=== PATIENT | female | born 1970 | race Caucasian/White ===

== ENCOUNTER 2016-07-07 09:28 | Emergency (ER) | payer BC, OTHER ==
[~2016-07-07] VITALS: Ht 154.9 cm; Wt 84.9 kg
[2016-07-07] MEDS ORDERED: HYDROmorphone 1 MG/ML, 1ML ONE ×2 (10:09→10:47)
[2016-07-07] MEDS ORDERED: ONDANSETRON 2MG/ML, 2ML ONE (10:09)
[2016-07-07] MEDS: HYDROmorphone 1 MG/ML, 1ML IVPush PRN ×2 (10:14→10:50)
[2016-07-07 10:22] LABS: PATH.CAST-FLAG NOT PRESENT; SPERM-FLAG NOT PRESENT; SRC-FLAG NOT PRESENT; XTAL-FLAG NOT PRESENT; YLC-FLAG NOT PRESENT
[2016-07-07 10:24] LABS: HCG UR OBC PASS
[2016-07-07] MEDS ORDERED: ONDANSETRON 2MG/ML, 2ML IVPush ONE (10:30)
[2016-07-07 11:10] LABS: BLOOD UREA NITROGEN 14 mg/dL (7-18)
[2016-07-07 11:13] LABS: ASPARTATE AMINO TRANSFERASE 13 U/L (15-37)
[2016-07-07] MEDS ORDERED: OMNIPAQUE 350 MG/ML, 100ML BOTTLE ONE (11:37)
[2016-07-07] MEDS ORDERED: KETOROLAC 30 MG/1 ML ONE (12:03)
[2016-07-07 12:50] VITALS: BP 125/71
[2016-07-07] MEDS ORDERED: KETOROLAC 30 MG/1 ML IVPush ONE (14:30)
== END 2016-07-07 13:02 ==
LOC: ED 12:56
DX: K57.32 Diverticulitis of large intestine without perforation or abscess without bleeding (principal); R10.32 Left lower quadrant pain; Z90.89 Acquired absence of other organs
CPT/HCPCS: 36415; 74177; 80053; 81001; 81025; 85025; 87086; 96374; 96375; 96376; 99285; J1170; J1885; J2405; Q9967

== ENCOUNTER → 2016-09-30 | Outpatient (CLI) | payer BC | END | disposition home or self-care (01) | LOC: CFH 15:28 | PROVIDERS: ATTEND Family Medicine | DX: Z12.31 Encounter for screening mammogram for malignant neoplasm of breast (principal) | CPT/HCPCS: 77063; G0202 ==